=== PATIENT | male | born 1980 | race African-American/Black ===

== ENCOUNTER 2019-11-29 12:13 | Emergency (ER) | payer OTHER, SELFPAY ==
--- NOTE | 2019-11-29 12:58 | RAD ---
XR Hand Rt 3 View STANDARD History: Injury. Fifth metacarpal pain Comparison: CT right wrist September 02, 2018 Findings: Old fifth metacarpal base fracture with mild foreshortening. No acute displaced fracture or malalignment. Mild positive ulnar variance. Small ossicle near the fifth metacarpal base may be sequela of old injury. Impression: Chronic findings. No acute osseous abnormality. Given the positive ulnar variance, MRI ma y be beneficial for chronic medial wrist pain to evaluate for triangular fibrocartilage injury.
== END 2019-11-29 13:19 | disposition home or self-care (01) ==
LOC: MADERS 12:13
DX: S63.501A Unspecified sprain of right wrist, initial encounter (principal); S62.306D Unspecified fracture of fifth metacarpal bone, right hand, subsequent encounter for fracture with routine healing; X50.0XXA Overexertion from strenuous movement or load, initial encounter